=== PATIENT | female | born 1940 | race Caucasian/White ===

== ENCOUNTER 2017-07-13 16:31 | Emergency (ER) | payer MEDICARE, OTHER ==
[~2017-07-13] VITALS: Ht 154.9 cm; Wt 90.7 kg
[~2017-07-13 16:31] MED LIST: ATENOLOL50 MG ORAL; AZOR 5-20 MG T1 EACH ORAL; HYDROCHLOROTHIA50 MG ORAL; KLONOPIN0.5 MG ORAL; LEVOTHYROXINE75 MCG ORAL; MAGNESIUM400 M1 PO; MAPROTILINE HCL75 MG PO; MONTELUKAST SOD10 MG ORAL; NORCO 10/3251 EA ORAL; PRAVACHOL20 MG ORAL; RANITIDINE HCL150 MG ORAL; SENOKOT8.6 MG ORAL
--- NOTE | 2017-07-13 17:03 | Emergency Room Report ---
History of Present Illness General Chief Complaint: Chest Pain Source: Patient Present Illness HPI 77-year-old female presents to the emergency department complaining of 7/10 in severity chest pain described as tightness with shortness of breath since yesterday. Patient has history of high blood pressure, hypothyroid, and anxiety. Patient was seen by her PMD who suggested she the dilated up emergency department. Patient denies history of chest pain or shortness of breath, denies swelling of the LE's. She denies recent illness, wheezing, cough , fevers patient reports weakness. Denies nausea vomiting .Denies Palpitations , LOC, AMS, dizziness, Changes in Vision, Sensation, paresthesias, or a sudden severe headache. Allergies: Coded Allergies: PENICILLINS (Unverified Allergy, Severe, 11/02/14) SULFA (SULFONAMIDE ANTIBIOTICS) (Unverified Allergy, Severe, 11/02/14) Uncoded Allergies: herbal tea (Allergy, Unknown, 11/05/14) Patient History Past Medical History: see triage record, HTN, other - anxiety Past Surgical History: none Pertinent Family History: none Now: No Immunizations: UTD Reviewed Nursing Documentation: PMH: Agreed, PSxH: Agreed Nursing Documentation-PMH Hx Cardiac Problems: Yes Hx Hypertension: Yes Hx Cancer: No Hx Gastrointestinal Problems: Yes - hx indigestion History Of Psychiatric Problem: Yes - Anxiety Hx Neurological Problems: No Review of Systems All Other Systems: negative except mentioned in HPI Physical Exam Vital Signs Date Time Temp Pulse Resp B/P (MAP) Pulse Ox O2 Delivery O2 Flow Rate FiO2 07/13/17 16:38 97.2 57 18 138/56 100 Room Air Sp02 EP Interpretation: reviewed, normal General Appearance: no apparent distress, alert, GCS 15, non-toxic Head: normocephalic, atraumatic Eyes: bilateral eye normal inspection, bilateral eye PERRL ENT: hearing grossly normal, normal voice Neck: full range of motion, supple/symm/no masses Respiratory: lungs clear, normal breath sounds, no rhonchi, no respiratory distress, no wheezing, speaking full sentences Cardiovascular #1: regular rate, rhythm, no edema, normal capillary refill, bradycardia Gastrointestinal: normal bowel sounds, non tender, soft, no guarding, no rebound Rectal: deferred Genitourinary: normal inspection, no CVA tenderness Musculoskeletal: back normal, gait/station normal, normal range of motion, non- tender, no calf tenderness Neurologic: alert, oriented x3, responsive, sensory intact, speech normal Psychiatric: judgement/insight normal, memory normal, mood/affect normal Skin: normal color, no rash, warm/dry, well hydrated Lymphatic: no adenopathy Medical Decision Making SUKI Attestation Dr. Nichole is my supervising Physician whom patient management has been discussed with. Diagnostic Impression: Primary Impression: Chest pain Qualified Codes: R07.89 - Other chest pain ER Course 77-year-old female presents to the emergency department complaining of 7/10 in severity chest pain described as tightness with shortness of breath since yesterday. Patient has history of high blood pressure, hypothyroid, and anxiety. Patient was seen by her PMD who suggested she the dilated up emergency department. Patient denies history of chest pain or shortness of breath, denies swelling of the LE's. She denies recent illness, wheezing, cough , fevers patient reports weakness. Denies nausea vomiting .Denies Palpitations , LOC, AMS, dizziness, Changes in Vision, Sensation, paresthesias, or a sudden severe headache. Ddx considered but are not limited to [place], pneumonia, contusion, costochondritis , PE, ACS, Shoulder strain, Chest wall contusion. aortic dissection. Vital signs: 16997 , pt. is afebrile: bradycardia at 57 BPM , saturating 100% on room air H&PE are most consistent with CP in advanced age with RF of HTN, will do cardiac work up for possible unstable angina, will r/o NSTEMI/ACS, anxiety is also possibility for pt. symptoms. ORDERS: - EK BPM Luis Sinus - no acute ST changes reviewed by Dr. Nichole , this interpretation was scribed by SUKI Mcginnis -CBC elevated platelets, otherwise unremarkable -CMP: Unremarkable -CK-MB: WNL -Troponins: WNL -BNP: WNL CXR: ED INTERVENTIONS: - PT. placed on cardiac monitoring. - 0.5mg Ativan PO --Pt. states she is feeling completely better, and wants to Leave. - I Spoke to Dr. Fernandes on the phone who wants the pt. to be admitted for full work up to r/o ACS due to new onset CP in the presence of cardiac RF's. pt. will be admitted to Dr. Hills to Rule out ACS. DISPOSITION: Pt. Requests AMA. - At this time the patient is requesting to leave AGAINST MEDICAL ADVICE. I believe that this patient has the capacity to make decisions on her own. I discussed with the patient the risks of leaving AMA. Some of these risks include delay in diagnosis and treatment, as well as worsening of symptoms, organ damage, and permanent disability or even . After discussing these risks with the patient. She continues to express Her want to leave AGAINST MEDICAL ADVICE. I encouraged the patient to return at any time, and that she will be welcome here in the emergency department to continue medical management. Labs Test 07/13/17 17:15 07/13/17 18:56 White Blood Count 6.4 K/UL (4.8-10.8) Red Blood Count 3.25 M/UL (4.20-5.40) Hemoglobin 9.7 G/DL (12.0-16.0) Hematocrit 28.5 % (37.0-47.0) Mean Corpuscular Volume 88 FL (80-99) Mean Corpuscular Hemoglobin 29.8 PG (27.0-31.0) Mean Corpuscular Hemoglobin Concent 34.0 G/DL (32.0-36.0) Red Cell Distribution Width 12.9 % (11.6-14.8) Platelet Count 466 K/UL (150-450) Mean Platelet Volume 6.9 FL (6.5-10.1) Neutrophils (%) (Auto) 64.1 % (45.0-75.0) Lymphocytes (%) (Auto) 23.8 % (20.0-45.0) Monocytes (%) (Auto) 7.8 % (1.0-10.0) Eosinophils (%) (Auto) 3.0 % (0.0-3.0) Basophils (%) (Auto) 1.4 % (0.0-2.0) Sodium Level 131 mEQ/L (135-145) Potassium Level 4.6 mEQ/L (3.4-4.9) Chloride Level 91 mEQ/L (98-107) Carbon Dioxide Level 27 mEQ/L (20-30) Anion Gap 13 (5-15) Blood Urea Nitrogen 23 mg/dL (7-23) Creatinine 1.2 mg/dL (0.5-0.9) Estimat Glomerular Filtration Rate mL/min (>60) Glucose Level 100 mg/dL (74-106) Calcium Level 9.3 mg/dL (8.6-10.2) Total Bilirubin < 0.2 mg/dL (0.0-1.2) Aspartate Amino Transf (AST/SGOT) 18 U/L (5-40) Alanine Aminotransferase (ALT/SGPT) 13 U/L (3-33) Alkaline Phosphatase 63 U/L (35-104) Total Creatine Kinase 76 U/L (26-140) Creatine Kinase MB < 1.5 ng/mL (< 3.8) Creatine Kinase MB Relative Index Troponin I < 0.30 ng/mL (<=0.30) Pro-B-Type Natriuretic Peptide 158 pg/mL (0-450) Total Protein 7.1 g/dL (6.6-8.7) Albumin 5.0 g/dL (3.5-5.2) Globulin 2.1 g/dL Albumin/Globulin Ratio 2.3 (1.0-2.7) Urine Color Pale yellow Urine Appearance Clear Urine pH 7 (4.5-8.0) Urine Specific [place] 1.005 (1.005-1.035) Urine Protein Negative (NEGATIVE) Urine Glucose (UA) Negative (NEGATIVE) Urine Ketones Negative (NEGATIVE) Urine Occult Blood Negative (NEGATIVE) Urine Nitrite Negative (NEGATIVE) Urine Bilirubin Negative (NEGATIVE) Urine Urobilinogen Normal MG/DL (0.0-1.0) Urine Leukocyte Esterase 1+ (NEGATIVE) Urine RBC 0-2 /HPF (0 - 2) Urine WBC 2-4 /HPF (0 - 2) Urine Squamous Epithelial Cells Few /LPF (NONE/OCC) Urine Bacteria Few /HPF (NONE) EKG Diagnostic Results EP Interpretation: Dr. Nichole Rate: bradycardiac - 56 BPM Rhythm: NSR ST Segments: no acute changes ASA given to the pt in ED: No - PT. has elevated platelets SUKI Scribe Text This interpretation was scribed by SUKI Mcginnis Last Vital Signs Date Time Temp Pulse Resp B/P (MAP) Pulse Ox O2 Delivery O2 Flow Rate FiO2 07/13/17 16:38 97.2 57 18 138/56 100 Room Air Disposition: AGAINST MEDICAL ADVICE Condition: Unknown Patient Instructions: Nonspecific Chest Pain Additional Instructions: Take previously prescribed medications as directed. You have chosen to leave the ED AGAINST MEDICAL ADVICE. If you change your decision and want to continue evaluation we encourage you to return to the ED. Follow up with a Primary Care Provider in 24 HOURS, even if your symptoms have resolved. --Please review list of primary care clinics, if you do not already have a primary care provider Return sooner to ED if new symptoms occur, or current symptoms become worse. - Please note that this Emergency Department Report was dictated using [employer] hand carding technology software, occasionally this can lead to erroneous entry secondary to interpretation by the dictation equipment. Stephanie Mcginnis Jul 13, 2017 17:03
[2017-07-13 17:16] VITALS: BP 132/75
[2017-07-13 17:29] LABS: BASOPHILS % (AUTO) 1.4 % (0.0-2.0); LYMPHOCYTES % (AUTO) 23.8 % (20.0-45.0); MEAN CORPUSCULAR HEMOGLOBIN 29.8 PG (27.0-31.0); MEAN CORPUSCULAR VOLUME 88 FL (80-99); MEAN PLATELET VOLUME 6.9 FL (6.5-10.1); MONOCYTES % (AUTO) 7.8 % (1.0-10.0); NEUTROPHILS % (AUTO) 64.1 % (45.0-75.0); PLATELET COUNT 466 K/UL (150-450); RED BLOOD COUNT 3.25 M/UL (4.20-5.40); RED CELL DISTRIBUTION WIDTH 12.9 % (11.6-14.8); WHITE BLOOD COUNT 6.4 K/UL (4.8-10.8)
[2017-07-13 17:45] LABS: ALANINE AMINOTRANSFERASE 13 U/L (3-33); ALBUMIN/GLOBULIN RATIO 2.3 (1.0-2.7); ANION GAP 13 (5-15); ASPARTATE AMINO TRANSFERASE 18 U/L (5-40); CALCIUM 9.3 mg/dL (8.6-10.2); CARBON DIOXIDE 27 mEQ/L (20-30); CHLORIDE 91 mEQ/L (98-107); CREATININE 1.2 mg/dL (0.5-0.9); HEMOLYSIS 3; POTASSIUM 4.6 mEQ/L (3.4-4.9); SODIUM 131 mEQ/L (135-145); TOTAL PROTEIN 7.1 g/dL (6.6-8.7)
[2017-07-13 17:46] LABS: TROPONIN I < 0.30 ng/mL (<=0.30)
[2017-07-13 17:56] LABS: CKMB < 1.5 ng/mL (< 3.8)
[2017-07-13] MEDS ORDERED: LORazepam 0.5mg tab ORAL ONE (18:30)
[2017-07-13 19:33] LABS: APPEARANCE,URINE CLEAR; KETONES,URINE NEGATIVE (NEGATIVE); LEUKOCYTE ESTERASE ,URINE 1+ (NEGATIVE); NITRITE,URINE NEGATIVE (NEGATIVE); PH,URINE 7 (4.5-8.0); PROTEIN,URINE NEGATIVE (NEGATIVE); UROBILINOGEN,URINE NORMAL MG/DL (0.0-1.0)
[2017-07-13 19:35] LABS: RBC,URINE 0-2 /HPF (0 - 2); SQUAMOUS EPITHELIAL CELL,UR FEW /LPF (NONE/OCC)
[2017-07-13 19:36] LABS: BACTERIA,URINE FEW /HPF
[2017-07-13 22:07] VITALS: BP 138/62
--- NOTE | 2017-07-14 10:11 | Diagnostic Imaging Report ---
Indication: Chest pain Technique: One view of the chest Comparison: 11/03/2014 Findings: No acute infiltrates, effusions, or congestion. Tortuous calcified aorta. Normal heart size. Upper mediastinum unremarkable. No significant change Impression: No acute process.
== END 2017-07-13 22:09 | disposition left against medical advice (07) ==
LOC: EMR 18:58
DX: R07.89 Other chest pain (principal); I10 Essential (primary) hypertension; F41.9 Anxiety disorder, unspecified; Z88.0 Allergy status to penicillin; Z88.2 Allergy status to sulfonamides; R00.1 Bradycardia, unspecified
CPT/HCPCS: 36415; 71010; 80053; 81003; 82550; 82553; 83880; 84484; 85025; 93005; 99284